=== PATIENT | male | born 1960 | race Caucasian/White ===

== ENCOUNTER 2016-10-14 05:29 | Day surgery (SDC) | payer OTHER ==
[~2016-10-14 05:29] MED LIST: cefOXitin SODIUM 1 GM in D5W 50 ML IV ONE
[2016-10-14] MEDS ORDERED: LIDOCAINE 1% 2 ML INJ ONE (05:45)
[2016-10-14] MEDS ORDERED: BUPIVACAINE/EPI 0.5% 30 ML SDV ONE (07:04)
[2016-10-14] MEDS ORDERED: METHYLENE BLUE 0.5% 50 MG/10 ML AMP ONE (07:05)
[2016-10-14] MEDS ORDERED: PROPOFOL 200 MG/20 ML VIAL ONE (07:17)
[2016-10-14] MEDS ORDERED: MIDAZOLAM 2 MG/2 ML VIAL ONE (07:17)
[2016-10-14] MEDS ORDERED: fentaNYL 250 MCG/5 ML INJ ONE (07:17)
[2016-10-14] MEDS ORDERED: DEXAMETHASONE 4 MG/ML VIAL ONE ×2 (07:18)
[2016-10-14] MEDS ORDERED: KETOROLAC 30 MG/1 ML SDV ONE (07:18)
[2016-10-14] MEDS ORDERED: METOCLOPRAMIDE 10 MG/2 ML VIAL ONE (07:18)
[2016-10-14] MEDS ORDERED: LIDOCAINE 2% 100 MG/5 ML SYR ONE (07:18)
[2016-10-14] MEDS ORDERED: MAGNESIUM HYDROXIDE 30 ML UDCUP PO ONE (10:00)
== END 2016-10-14 10:47 | disposition home or self-care (01) ==
LOC: FSGY 05:29
PROVIDERS: ATTEND Surgery
PROC: 06BY0ZC Excision of Hemorrhoidal Plexus, Open Approach (ICD-10-PCS; principal; 2016-10-14 07:15)
DX: K64.1 Second degree hemorrhoids (principal)
CPT/HCPCS: J0697; J1100; J1885; J2001; J2250; J2704; J2765; J3010; Q9968